=== PATIENT | male | born 1955 ===

== ENCOUNTER → 2016-12-23 | Outpatient (CLI) | payer BC ==
[2016-12-23 13:01] LABS: BLOOD UREA NITROGEN 18 mg/dl (7-18); BUN/CREATININE RATIO 16.5 (10-20); CALCIUM 8.9 mg/dl (8.5-10.1); CARBON DIOXIDE 30 mmol/L (21-32); CHLORIDE 106 mmol/L (98-107); CHOLESTEROL 177 mg/dl (0-200); CHOLESTEROL/HDL RATIO 5.7; GLUCOSE 112 mg/dl (70-99); HDL CHOLESTEROL 31 mg/dl; LDL CHOLESTEROL CALCULATED 109 mg/dl; POTASSIUM 4.2 mmol/L (3.5-5.1); SODIUM 140 mmol/L (136-145); TRIGLYCERIDES 187 mg/dl (0-150); VERY LOW DENSITY LIPOPROT CALC 37 mg/dl
[2016-12-23 13:25] LABS: ESTIMATED AVERAGE GLUCOSE 120 mg/dl; HA1C FLAG Normal (Normal)
== END | disposition home or self-care (01) ==
LOC: C.LABPVFM 09:07
PROVIDERS: ATTEND Family Medicine
DX: Z00.00 Encounter for general adult medical examination without abnormal findings (principal); Z11.59 Encounter for screening for other viral diseases; E78.5 Hyperlipidemia, unspecified; R73.9 Hyperglycemia, unspecified